=== PATIENT | male | born 1975 | race Two or more races ===

== ENCOUNTER 2021-05-13 11:17 | Outpatient (CLI) | payer OTHER ==
[~2021-05-13 11:17] MED LIST: COZAAR50 MG
== END 2021-05-13 11:32 | disposition home or self-care (01) ==
LOC: MRI 11:17
PROVIDERS: ATTEND Family Medicine
DX: M17.11 Unilateral primary osteoarthritis, right knee (principal); M25.561 Pain in right knee
CPT/HCPCS: 70553; 73718